=== PATIENT | male | born 1955 | race Caucasian/White ===

== ENCOUNTER → 2020-08-10 | Outpatient (CLI) | payer OTHER, SELFPAY | LOC: M LABSMTC 09:38 | PROVIDERS: ATTEND Pediatrics | DX: Z11.59 Encounter for screening for other viral diseases (principal) ==

== ENCOUNTER → 2020-08-22 | Outpatient (CLI) | payer MEDICAID ==
--- NOTE | 2020-08-22 12:47 | REP ---
INDICATION: COUGH ---- COVID +. COMPARISON: No comparison study. TECHNIQUE: Two views.. FINDINGS: Two views of the chest demonstrate an infiltrate in the left perihilar region consistent with left upper lobe pneumonia. There are a few increased markings in the left base as well.a right lung appears clear. Pleural angles are sharp. Heart size is normal. Pulmonary vasculature is not increased. IMPRESSION: Left upper and lower lobe infiltrates consistent with pneumonia.. <Electronically signed by Rafael Shaikh > 08/22/20 [id number]
== END ==
LOC: M RAD 11:22
DX: R05 Cough (principal); Z20.828 Contact with and (suspected) exposure to other viral communicable diseases

== ENCOUNTER → 2022-10-29 | Outpatient (CLI) | payer MEDICARE, OTHER ==
[~2022-10-29] MED LIST: ADVA115A INH; CLAR10CA3 PO; ELIQ5TAB PO; JANU100T PO; LISI10TA22 PO; NESI25TA PO; NOXI1TAB PO; PROBCAP14 PO; THERTAB52 PO; VITA-243 PO
== END ==
LOC: M RAD 09:54
PROVIDERS: ATTEND Internal Medicine
DX: R22.42 Localized swelling, mass and lump, left lower limb (principal); S86.012A Strain of left Achilles tendon, initial encounter

== ENCOUNTER 2024-09-13 11:19 | Day surgery (SDC) | payer MEDICARE ==
[~2024-09-13] VITALS: Ht 175.3 cm; Wt 85.1 kg
[~2024-09-13 11:19] MED LIST changes: +ASPI325T57 PO; +ATOR40TA75 PO; +DULA3PEN; +GLIP10TA15 PO; +IRBE75TA11 PO; +JARD1TAB PO; +LIDOCAINE 2% 100MG/5ML SDV (FOR ANES.) As Ordered ONE; +propofoL 200 MG/20 ML VIAL As Ordered ONE
[2024-09-13 13:30] VITALS: TEMP 90
[2024-09-13 13:56] VITALS: BP 148/72; O2SAT 96
== END 2024-09-13 13:59 | disposition home or self-care (01) ==
LOC: M OPP 11:19
PROVIDERS: ATTEND Surgery
DX: Z12.11 Encounter for screening for malignant neoplasm of colon (principal); K57.30 Diverticulosis of large intestine without perforation or abscess without bleeding; Z91.018 Allergy to other foods; Z79.82 Long term (current) use of aspirin; Z79.84 Long term (current) use of oral hypoglycemic drugs; Z79.899 Other long term (current) drug therapy

== ENCOUNTER → 2024-10-08 | Outpatient (CLI) | payer MEDICARE ==
[~2024-10-08] MED LIST changes: -LIDOCAINE 2% 100MG/5ML SDV (FOR ANES.) As Ordered ONE; -propofoL 200 MG/20 ML VIAL As Ordered ONE
== END ==
LOC: M WUC 15:46
PROVIDERS: ATTEND Internal Medicine
DX: R05.9 Cough, unspecified (principal); R06.02 Shortness of breath